=== PATIENT | female | born 1935 | race Caucasian/White ===

== ENCOUNTER 2017-08-23 00:04 | Emergency (ER) | payer MEDICARE ==
[2017-08-23 00:15] VITALS: TEMP 98.2
--- NOTE | 2017-08-23 00:31 | ED ---
Seizure HPI - General Chief Complaint: Seizure Stated Complaint: Seizure Time Seen by Provider: 08/23/17 00:17 Source: patient, family ( ), RN notes reviewed Mode of arrival: EMS Limitations: altered mental status - History of Present Illness Initial Comments: This is an 82-year-old female who presents to the emergency department with chief complaint of seizure. states that he awoke this evening while laying next to his in bed because the bed was shaking. He states that he looked over and noticed that his was having a possible seizure. He states that he got out of bed and called 911. He states that the patient's eyes were open and her pupils appeared dilated. Patient did not fall, she was in the bed the entire episode. states by the time he came back into the room after calling EMS patient had stopped shaking. Currently, patient only complains of nausea. She denies any recent illnesses or infections. She has had a seizure 6 years ago and all tests were negative. There were unable to identify why patient had a seizure. Patient denies any new medications. Denies fevers or chills, chest pain or shortness of breath, abdominal pain, diarrhea or constipation, dysuria or hematuria, headache, dizziness or vision changes. - Related Data Home Medications Medication Instructions Recorded Confirmed Unable To Assess [Unable to Assess] 08/23/17 08/23/17 Allergies Allergy/AdvReac Type Severity Reaction Status Date / Time Sulfa (Sulfonamide Allergy Unknown Verified 08/23/17 00:16 Antibiotics) Review of Systems ROS Statement: Those systems with pertinent positive or pertinent negative responses have been documented in the HPI. ROS Other: All systems not noted in ROS Statement are negative. Past Medical History Past Medical History: Hyperlipidemia History of Any Multi-Drug Resistant Organisms: None Reported Past Surgical History: Tonsillectomy Past Psychological History: No Psychological Hx Reported Smoking Status: Never smoker Past Alcohol Use History: Occasional Past Drug Use History: None Reported General Exam - General Exam Comments Initial Comments: General: Awake and alert, well-developed; in no apparent distress. HEENT: Head atraumatic, normocephalic. Pupils are equal, round and reactive to light. Extraocular movements intact. Oropharynx moist without erythema or exudate. Superficial laceration noted to the left lower lip. Blood is dried. Maceration to bilateral sides of the tongue. Does appear patient bit her tongue during the seizure episode. Neck: Supple. Normal ROM. Cardiovascular: Regular rate and rhythm. No murmurs, rubs or gallops. Chest symmetrical. Respiratory: Lungs clear to auscultation bilaterally. No wheezes, rales or rhonchi. Normal respiratory effort with no use of accessory muscles. Abdomen: Soft, non-tender, non-distended. No rigidity, rebound or guarding. Normal bowel sounds in all 4 quadrants. Musculoskeletal: Normal ROM, no tenderness, strength 5/5 bilateral upper and lower extremities. Ambulating normally. Skin: Shorter, warm and dry without rashes or lesions. Neurological: Alert and oriented x3. CN II-XII grossly intact. Speech is fluent and answers are appropriate. No focal neuro deficits. Psychiatric: Normal mood and affect. No overt signs of depression or anxiety noted. Limitations: altered mental status Course Vital Signs 08/23/17 08/23/17 08/23/17 00:09 01:26 02:11 Temperature 98.2 F Pulse Rate 100 89 86 Respiratory 17 18 18 Rate Blood Pressure 181/89 168/80 172/99 O2 Sat by Pulse 91 L 99 99 Oximetry Medical Decision Making - Medical Decision Making This is an 82-year-old female who presents to the emergency department with chief complaint of seizure. Seizure was witnessed by her . Patient sustained no major injuries as she was seizing while in bed this evening. She did bite her lip and tongue. These are minor wounds. Patient does have a history of a seizure 6 years ago. She takes no antiepileptics. CBC, CMP and coags were unremarkable. Troponin is negative. EKG revealed sinus rhythm with occasional PACs. Chest x-ray revealed no acute abnormalities. 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 This was discussed with patient and her at bedside. Patient's states he does remember being told about this finding 6 years ago. Patient's vital signs at been stable and she is in no acute distress. She has been seizure free while in the emergency department. Recommended admission for observation and neurology follow-up, however patient states she is back to baseline and would like to be discharged home. Patient will be discharged home at this time. She'll be given contact information for follow-up to neurology. All questions were answered. - Lab Data Result diagrams: 08/23/17 00:25 08/23/17 00:25 Lab Results 08/23/17 08/23/17 08/23/17 Range/Units 00:25 00:25 00:25 WBC 5.8 (3.8-10.6) k/uL RBC 3.99 (3.80-5.40) m/uL Hgb 12.9 (11.4-16.0) gm/dL Hct 38.1 (34.0-46.0) % MCV 95.5 (80.0-100.0) fL MCH 32.4 (25.0-35.0) pg MCHC 34.0 (31.0-37.0) g/dL RDW 13.2 (11.5-15.5) % Plt Count 169 (150-450) k/uL Neutrophils % 68 % Lymphocytes % 19 % Monocytes % 9 % Eosinophils % 0 % Basophils % 0 % Neutrophils # 3.9 (1.3-7.7) k/uL Lymphocytes # 1.1 (1.0-4.8) k/uL Monocytes # 0.5 (0-1.0) k/uL Eosinophils # 0.0 (0-0.7) k/uL Basophils # 0.0 (0-0.2) k/uL PT (9.0-12.0) sec INR (<1.2) APTT (22.0-30.0) sec Sodium 134 L (137-145) mmol/L Potassium 3.6 (3.5-5.1) mmol/L Chloride 99 (98-107) mmol/L Carbon Dioxide 20 L (22-30) mmol/L Anion Gap 15 mmol/L BUN 11 (7-17) mg/dL Creatinine 0.70 (0.52-1.04) mg/dL Est GFR (CKD-EPI)AfAm >90 (>60 ml/min/1.73 sqM) Est GFR (CKD-EPI)NonAf 82 (>60 ml/min/1.73 sqM) Glucose 148 H (74-99) mg/dL Calcium 8.7 (8.4-10.2) mg/dL Phosphorus 2.2 L (2.5-4.5) mg/dL Magnesium 1.7 (1.6-2.3) mg/dL Total Bilirubin 0.9 (0.2-1.3) mg/dL AST 43 H (14-36) U/L ALT 28 (9-52) U/L Alkaline Phosphatase 62 (38-126) U/L Troponin I 0.025 (0.000-0.034) ng/mL Total Protein 6.5 (6.3-8.2) g/dL Albumin 4.0 (3.5-5.0) g/dL Urine Color Urine Appearance (Clear) Urine pH (5.0-8.0) Ur Specific Rolla (1.001-1.035) Urine Protein (Negative) Urine Glucose (UA) (Negative) Urine Ketones (Negative) Urine Blood (Negative) Urine Nitrite (Negative) Urine Bilirubin (Negative) Urine Urobilinogen (<2.0) mg/dL Ur Leukocyte Esterase (Negative) Urine RBC (0-5) /hpf Urine WBC (0-5) /hpf Urine WBC Clumps (None) /hpf Ur Squamous Epith Cells (0-4) /hpf Urine Bacteria (None) /hpf Urine Mucus (None) /hpf 08/23/17 08/23/17 Range/Units 00:25 02:10 WBC (3.8-10.6) k/uL RBC (3.80-5.40) m/uL Hgb (11.4-16.0) gm/dL Hct (34.0-46.0) % MCV (80.0-100.0) fL MCH (25.0-35.0) pg MCHC (31.0-37.0) g/dL RDW (11.5-15.5) % Plt Count (150-450) k/uL Neutrophils % % Lymphocytes % % Monocytes % % Eosinophils % % Basophils % % Neutrophils # (1.3-7.7) k/uL Lymphocytes # (1.0-4.8) k/uL Monocytes # (0-1.0) k/uL Eosinophils # (0-0.7) k/uL Basophils # (0-0.2) k/uL PT 11.1 (9.0-12.0) sec INR 1.2 H (<1.2) APTT 21.6 L (22.0-30.0) sec Sodium (137-145) mmol/L Potassium (3.5-5.1) mmol/L Chloride (98-107) mmol/L Carbon Dioxide (22-30) mmol/L Anion Gap mmol/L BUN (7-17) mg/dL Creatinine (0.52-1.04) mg/dL Est GFR (CKD-EPI)AfAm (>60 ml/min/1.73 sqM) Est GFR (CKD-EPI)NonAf (>60 ml/min/1.73 sqM) Glucose (74-99) mg/dL Calcium (8.4-10.2) mg/dL Phosphorus (2.5-4.5) mg/dL Magnesium (1.6-2.3) mg/dL Total Bilirubin (0.2-1.3) mg/dL AST (14-36) U/L ALT (9-52) U/L Alkaline Phosphatase (38-126) U/L Troponin I (0.000-0.034) ng/mL Total Protein (6.3-8.2) g/dL Albumin (3.5-5.0) g/dL Urine Color Light Yellow Urine Appearance Clear (Clear) Urine pH 6.5 (5.0-8.0) Ur Specific Rolla 1.010 (1.001-1.035) Urine Protein 1+ H (Negative) Urine Glucose (UA) Negative (Negative) Urine Ketones Trace H (Negative) Urine Blood Small H (Negative) Urine Nitrite Negative (Negative) Urine Bilirubin Negative (Negative) Urine Urobilinogen <2.0 (<2.0) mg/dL Ur Leukocyte Esterase Trace H (Negative) Urine RBC 10 H (0-5) /hpf Urine WBC 3 (0-5) /hpf Urine WBC Clumps Rare H (None) /hpf Ur Squamous Epith Cells <1 (0-4) /hpf Urine Bacteria Rare H (None) /hpf Urine Mucus Rare H (None) /hpf - EKG Data EKG Comments: 0:37:33. Sinus rhythm with premature atrial complexes. Left axis deviation. Septal infarct, age undetermined. Ventricular rate 100 bpm, VA interval 148, QRS duration 84, QT/QTC 370/477. No evidence of ST segment elevation or depression. - Radiology Data Radiology results: report reviewed CT brain without contrast impression: Cerebral atrophy. Partly calcified extra- axial mass at the left anterior clinoid process consistent with the tuberculum sella meningioma. Chest x-ray impression: No active cardiopulmonary disease. Disposition Clinical Impression: Generalized seizure Disposition: HOME SELF-CARE Condition: Good Instructions: New-Onset Seizure in Adults (ED) Additional Instructions: Please follow up with Dr. Lawrence, neurology within 1-2 days. Please follow up with primary care provider within 1-2 days. Return to emergency department if symptoms should worsen or any concerns arise. Is patient prescribed a controlled substance at d/c from ED?: No Referrals: Sheldon Dailey MD [Primary Care Provider] - 1-2 days Marta Lawrence MD [STAFF PHYSICIAN] - 1-2 days Time of Disposition: 02:48
[2017-08-23 00:38] LABS: Basophils % (A) 0 %; Eosinophils % (A) 0 %; HCT 38.1 % (34.0-46.0); HGB 12.9 gm/dL (11.4-16.0); Lymphocytes # (A) 1.1 k/uL (1.0-4.8); Lymphocytes % (A) 19 %; MCH 32.4 pg (25.0-35.0); MCV 95.5 fL (80.0-100.0); Mean Platelet Volume 6.4; Monocytes # (A) 0.5 k/uL (0-1.0); Monocytes % (A) 9 %; Neutrophils # (A) 3.9 k/uL (1.3-7.7); Neutrophils % (A) 68 %; Platelet Count 169 k/uL (150-450); RBC 3.99 m/uL (3.80-5.40); RDW 13.2 % (11.5-15.5); WBC 5.8 k/uL (3.8-10.6)
[2017-08-23 00:49] LABS: ALT 28 U/L (9-52); AST 43 U/L (14-36); Alkaline Phosphatase 62 U/L (38-126); Anion Gap 15 mmol/L; Blood Urea Nitrogen 11 mg/dL (7-17); Calcium 8.7 mg/dL (8.4-10.2); Carbon Dioxide 20 mmol/L (22-30); Chloride 99 mmol/L (98-107); Glucose 148 mg/dL (74-99); Magnesium 1.7 mg/dL (1.6-2.3); Phosphorus 2.2 mg/dL (2.5-4.5); Potassium 3.6 mmol/L (3.5-5.1); Sodium 134 mmol/L (137-145); Total Bilirubin 0.9 mg/dL (0.2-1.3); Total Protein 6.5 g/dL (6.3-8.2)
--- NOTE | 2017-08-23 00:54 | XR ---
EXAMINATION TYPE: XR chest 2V DATE OF EXAM: 08/23/2017 COMPARISON: NONE HISTORY: Chest pain TECHNIQUE: Frontal and lateral views of the chest are obtained. FINDINGS: There is no heart failure nor confluent pneumonic infiltrate. Costophrenic angles are aj r. Thoracic aorta is atheromatous. Bony thorax is intact. There are chest leads. IMPRESSION: No active cardiopulmonary disease.
[2017-08-23 01:01] LABS: INR 1.2 (<1.2); Prothrombin Time 11.1 sec (9.0-12.0)
[2017-08-23] MEDS ORDERED: ONDANSETRON 4 MG/2 ML VIAL IVP STA (01:04)
--- NOTE | 2017-08-23 01:26 | CT ---
EXAMINATION TYPE: CT brain wo con DATE OF EXAM: 08/23/2017 COMPARISON: NONE HISTORY: seizure activity and left eye twitch CT DLP: 1121.00 mGycm Automated exposure control for dose reduction was used. FINDINGS: There is cerebral cortical atrophy. There is no mass effect nor midline shift. There is no evidence o f intracranial hemorrhage. There is a 2.4 cm rounded calcific density centered at the anterior clinoi d process on the left side the calvarium is intact. IMPRESSION: CEREBRAL ATROPHY. PARTLY CALCIFIED EXTRA-AXIAL MASS AT THE LEFT ANTERIOR CLINOID PROCESS CONSISTENT WITH THE TUBERCULU M SELLA MENINGIOMA.
[2017-08-23 01:28] VITALS: RESP 18
[2017-08-23 01:34] LABS: Partial Thromboplastin Time 21.6 sec (22.0-30.0)
[2017-08-23 02:15] VITALS: BP 172/99; PULSE 86
[2017-08-23 02:36] LABS: Appearance,Urine Clear (Clear); Bacteria,Urine Rare /hpf; Bilirubin,Urine Negative (Negative); Blood,Urine Small (Negative); Color,Urine Light Yellow; Glucose,Urine (UA) Negative (Negative); Ketones,Urine Trace (Negative); Leukocyte Esterase,Urine Trace (Negative); Mucus,Urine Rare /hpf; Nitrite,Urine Negative (Negative); PH, Urine 6.5 (5.0-8.0); Protein,Urine 1+ (Negative); RBC,Urine 10 /hpf (0-5); Squamous Epithelial Cell,Urine <1 /hpf (0-4); Urobilinogen,Urine <2.0 mg/dL (<2.0); WBC,Urine 3 /hpf (0-5)
== END 2017-08-23 03:08 | disposition home or self-care (01) ==
LOC: EC 00:04
DX: R56.9 Unspecified convulsions (principal); S01.511A Laceration without foreign body of lip, initial encounter; S01.552A Open bite of oral cavity, initial encounter; G31.9 Degenerative disease of nervous system, unspecified; I49.1 Atrial premature depolarization; D32.0 Benign neoplasm of cerebral meninges; R41.82 Altered mental status, unspecified; R11.0 Nausea; Z88.2 Allergy status to sulfonamides; X58.XXXA Exposure to other specified factors, initial encounter
CPT/HCPCS: 99285 ×2; 96374 ×2; 36415; 93005; 80053; 83735; 84100; 84484; 85025; 85610; 85730; 81001; 71046; 70450; 70553; J2405; A9581

== ENCOUNTER → 2017-08-23 | Outpatient (CLI) | payer MEDICARE ==
--- NOTE | 2017-08-23 18:45 | MR ---
EXAMINATION TYPE: MR brain wo/w con DATE OF EXAM: 08/23/2017 COMPARISON: NONE HISTORY: Seizure 7-2-18, abn CT, R/O meningioma TECHNIQUE: Multiplanar, multisequence images of the brain and brainstem is performed without and with IV contras t, utilizing 5.5 mL intravenous Gadavist . FINDINGS: There is cerebral cortical atrophy. There is patchy increased signal in the periventricular white mat ter on the T2 and FLAIR images. There is no midline shift. There is no sign of intracranial hemorrhag e. There is thinning of the corpus callosum. There is some patchy increased signal within the central amrita. There is a rounded 2 x 2.2 x 1.8 cm sharply marginated mass anterior to the left internal carotid art celina and left middle cerebral artery in the supraclinoid region on the left side. This has some mild i nternal enhancement. There is no surrounding mass effect or edema. This is an extra-axial mass and pr obably meningioma. The supraclinoid left internal carotid artery is partly encased by the mass. No ot her areas of pathologic enhancement are seen. IMPRESSION: Cerebral atrophy and chronic small vessel ischemia. Extra-axial enhancing left side well-defined mass without adjacent mass effect or edema is consistent with a tuberculum sella meningioma. A giant aneurysm is in the differential diagnosis but I think mu ch less likely.
== END | disposition home or self-care (01) ==
LOC: RADMRIMAIN 15:02
PROVIDERS: ATTEND Internal Medicine
DX: G31.9 Degenerative disease of nervous system, unspecified (principal); I67.82 Cerebral ischemia; G93.89 Other specified disorders of brain
CPT/HCPCS: 70553; A9581

== ENCOUNTER → 2017-10-07 | Outpatient (CLI) | payer MEDICARE ==
--- NOTE | 2017-10-07 11:16 | US ---
EXAMINATION TYPE: US venous doppler duplex LE RT DATE OF EXAM: 10/07/2017 10:54 AM COMPARISON: NONE CLINICAL HISTORY: I87.2 Venous insufficiency (chronic) (peripheral). Right ankle swelling. R/O DVT. No blood thinners. No hx of blood clots. SIDE PERFORMED: Right TECHNIQUE: The lower extremity deep venous system is examined utilizing real time linear array sonog misti with graded compression, doppler sonography and color-flow sonography. VESSELS IMAGED: External Iliac Vein (EIV) Common Femoral Vein Deep Femoral Vein Greater Saphenous Vein * Femoral Vein Popliteal Vein Small Saphenous Vein * Proximal Calf Veins (* superficial vessels) Grayscale, color doppler, spectral doppler imaging performed of the deep veins of the right lower ext remity. There is normal flow, compressibility, vascular waveforms. Right Leg: Negative for DVT. Prominent valve incidentally seen in mid popliteal vein. IMPRESSION: No sonographic evidence of deep venous thrombosis within the right lower extremity. Nicole tary thickened mid popliteal valve with associated turbulent flow without current valvular insufficie ncy.
== END | disposition home or self-care (01) ==
LOC: RADUSWWP 10:19
PROVIDERS: ATTEND Internal Medicine
DX: I87.2 Venous insufficiency (chronic) (peripheral) (principal)

== ENCOUNTER 2018-09-05 00:36 | Inpatient (IN) | payer MEDICARE ==
[2018-09-05] MEDS ORDERED: SODIUM CHLORIDE 0.9% 1,000 ML IV STA (00:37)
[2018-09-05] MEDS ORDERED: levETIRAcetam IV 500 MG in SODIUM CHLORIDE 0.9% 100 ML IVPB STA (00:44)
[2018-09-05 00:52] LABS: Glucose,Whole Blood 161 mg/dL (75-99)
[2018-09-05 01:05] LABS: Basophils % (A) 0 %; Eosinophils # (A) 0.1 k/uL (0-0.7); Eosinophils % (A) 1 %; HCT 42.1 % (34.0-46.0); HGB 13.9 gm/dL (11.4-16.0); Lymphocytes % (A) 12 %; MCH 32.2 pg (25.0-35.0); MCHC 32.9 g/dL (31.0-37.0); Mean Platelet Volume 6.5; Monocytes # (A) 0.4 k/uL (0-1.0); Monocytes % (A) 5 %; Neutrophils # (A) 6.3 k/uL (1.3-7.7); Neutrophils % (A) 80 %; Platelet Count 178 k/uL (150-450); RDW 12.8 % (11.5-15.5); WBC 7.9 k/uL (3.8-10.6)
[2018-09-05 01:14] LABS: ALT 29 U/L (9-52); AST 56 U/L (14-36); African American GFR (CKD) >90 (>60 ml/min/1.73 sqM); Albumin 4.1 g/dL (3.5-5.0); Alkaline Phosphatase 64 U/L (38-126); Anion Gap 15 mmol/L; Blood Urea Nitrogen 16 mg/dL (7-17); Calcium 8.9 mg/dL (8.4-10.2); Carbon Dioxide 17 mmol/L (22-30); Chloride 100 mmol/L (98-107); Glucose 162 mg/dL (74-99); Potassium 3.8 mmol/L (3.5-5.1); Sodium 132 mmol/L (137-145); Total Bilirubin 1.5 mg/dL (0.2-1.3); Total Protein 7.1 g/dL (6.3-8.2)
[2018-09-05] MEDS ORDERED: ONDANSETRON 4 MG/2 ML VIAL IVP STA (01:26)
--- NOTE | 2018-09-05 01:35 | XR ---
INDICATION: Pain COMPARISON: CXR 08/23/17 FINDINGS: Frontal and lateral views of the chest are provided. The heart is normal in size. Pulmonary vascularity is normal. There is no airspace consolidation, pleural effusion, or pneumothorax. Regional skeleton appears intact. IMPRESSION: No acute cardiopulmonary disease.
--- NOTE | 2018-09-05 01:35 | CT ---
INDICATION: Seizure activity TECHNIQUE: CT acquisition is performed through the brain. Sagittal and coronal reformatted images are provided. No IV contrast is administered. DOSE INFORMATION: DLP 1068.4 mGy-cm. This CT exam was performed using one or more of the following dose reduction techniques: automated exposure control, adjustment of the mA and/or kV according to patient size, and/or use of iterative reconstruction technique. COMPARISON: CT head 08/23/17. FINDINGS: The calvarium is intact. The visualized paranasal sinuses and mastoid air cells are clear. There is a stable calcified extra-axial mass in the left paraclinoid region measuring 2.3 x 2.5 x 2.2 cm, most likely a meningioma. There is no adjacent parenchymal edema. There is no evidence of acute intracranial hemorrhage or abnormal extra- axial fluid collection. There is no midline shift. Patchy hypoattenuation in the cerebral white matter is compatible with chronic small vessel ischemic disease. The lockhart-white matter differentiation is preserved. There is mild age-related parenchymal volume loss with symmetric prominence of the sulci, ventricles, and basal cisterns. IMPRESSION: 1. Stable presumed meningioma in the left paraclinoid region measuring 2. 5 cm in maximum diameter. 2. Involutional and chronic small vessel ischemic changes. 3. No CT evidence of acute intracranial process.
--- NOTE | 2018-09-05 01:56 | ED ---
Seizure HPI - General Chief Complaint: Seizure Stated Complaint: seizure Time Seen by Provider: 09/05/18 00:37 Source: family, EMS Mode of arrival: EMS - History of Present Illness Initial Comments: Lynne is a pleasant 83-year-old female with history of seizure disorder for which she is on Keppra twice daily. Patient presents to the emergency department today via EMS after an apparent seizure at home. History is provided primarily by the who reports that they've gone to bed at the usual time, he woke hearing her abnormal breathing and realized that she was having a seizure. At which time he called 911. EMS reports that they arrived on scene the patient was postictal, confused but in no acute distress. Her mental status has improved during transport. Upon arrival to the emergency department the patient expresses frustration that she has had a seizure but denies any acute complaints. Patient and report her last seizure was approximately one year ago. - Related Data Home Medications Medication Instructions Recorded Confirmed Unable To Assess [Unable to Assess] 08/23/17 08/23/17 Allergies Allergy/AdvReac Type Severity Reaction Status Date / Time Sulfa (Sulfonamide Allergy Unknown Verified 08/23/17 00:16 Antibiotics) Review of Systems ROS Statement: Those systems with pertinent positive or pertinent negative responses have been documented in the HPI. ROS Other: All systems not noted in ROS Statement are negative. Past Medical History Past Medical History: Hyperlipidemia History of Any Multi-Drug Resistant Organisms: None Reported Past Surgical History: Tonsillectomy Past Psychological History: No Psychological Hx Reported Smoking Status: Never smoker Past Alcohol Use History: Occasional Past Drug Use History: None Reported General Exam - General Exam Comments Initial Comments: Physical Exam GENERAL: Patient is well-developed and well-nourished. Patient is nontoxic and well- hydrated and is in no distress. HENT: Normocephalic, Atraumatic. EYES: PERRL, EOMI PULMONARY: Unlabored respirations. No audible rales rhonchi or wheezing was noted. CARDIOVASCULAR: There is a regular rate and rhythm without any murmurs gallops or rubs. ABDOMEN: Soft and nontender with normal bowel sounds. SKIN: Skin is clear with no lesions or rashes and otherwise unremarkable. : Deferred NEUROLOGIC: Patient is alert and oriented x3. Moving all extremities spontaneously MUSCULOSKELETAL: Normal extremities with adequate strength and full range of motion. No lower extremity swelling or edema. No calf tenderness. PSYCHIATRIC: Normal psychiatric evaluation Course Vital Signs 09/05/18 09/05/18 00:37 01:22 Temperature 99.1 F 98.7 F Pulse Rate 93 Respiratory 18 Rate Blood Pressure 172/108 160/97 O2 Sat by Pulse 96 92 L Oximetry Medical Decision Making - Medical Decision Making Patient was seen and evaluated, history is obtained from the patient, and EMS This is a patient with known seizure disorder with recurrent seizures despite medication compliance, given her advanced age and history of known meningioma computed tomography scan was ordered Labs resulted with some abnormalities including lactic acidosis with a lactic acid measuring 6.8 Dose of Keppra was given for the patient find Computed tomography scan revealed no acute intracranial findings Patient care was discussed with Dr. Vitaliy [facility] who accepts the admission for recurrent seizures. Request a consult to neurology Dr. Owen. Admission orders were placed. She was noted to have some irregular heartbeat on urban planner and a repeat EKG was obtained. Again the EKG is nonischemic and reveals sinus rhythm with frequent PACs. I suspect that the patient acidosis is leading to cardiac membrane irritability what causing the PACs. - Lab Data Result diagrams: 09/05/18 00:46 09/05/18 00:46 Lab Results 09/05/18 09/05/18 09/05/18 Range/Units 00:46 00:46 00:46 WBC 7.9 (3.8-10.6) k/uL RBC 4.30 (3.80-5.40) m/uL Hgb 13.9 (11.4-16.0) gm/dL Hct 42.1 (34.0-46.0) % MCV 98.0 (80.0-100.0) fL MCH 32.2 (25.0-35.0) pg MCHC 32.9 (31.0-37.0) g/dL RDW 12.8 (11.5-15.5) % Plt Count 178 (150-450) k/uL Neutrophils % 80 % Lymphocytes % 12 % Monocytes % 5 % Eosinophils % 1 % Basophils % 0 % Neutrophils # 6.3 (1.3-7.7) k/uL Lymphocytes # 1.0 (1.0-4.8) k/uL Monocytes # 0.4 (0-1.0) k/uL Eosinophils # 0.1 (0-0.7) k/uL Basophils # 0.0 (0-0.2) k/uL Sodium 132 L (137-145) mmol/L Potassium 3.8 (3.5-5.1) mmol/L Chloride 100 (98-107) mmol/L Carbon Dioxide 17 L (22-30) mmol/L Anion Gap 15 mmol/L BUN 16 (7-17) mg/dL Creatinine 0.72 (0.52-1.04) mg/dL Est GFR (CKD-EPI)AfAm >90 (>60 ml/min/1.73 sqM) Est GFR (CKD-EPI)NonAf 79 (>60 ml/min/1.73 sqM) Glucose 162 H (74-99) mg/dL POC Glucose (mg/dL) (75-99) mg/dL POC Glu Machine Tool Electrician ID Plasma Lactic Acid Norbert 6.9 H* (0.7-2.0) mmol/L Calcium 8.9 (8.4-10.2) mg/dL Total Bilirubin 1.5 H (0.2-1.3) mg/dL AST 56 H (14-36) U/L ALT 29 (9-52) U/L Alkaline Phosphatase 64 (38-126) U/L Total Protein 7.1 (6.3-8.2) g/dL Albumin 4.1 (3.5-5.0) g/dL 09/05/18 Range/Units 00:51 WBC (3.8-10.6) k/uL RBC (3.80-5.40) m/uL Hgb (11.4-16.0) gm/dL Hct (34.0-46.0) % MCV (80.0-100.0) fL MCH (25.0-35.0) pg MCHC (31.0-37.0) g/dL RDW (11.5-15.5) % Plt Count (150-450) k/uL Neutrophils % % Lymphocytes % % Monocytes % % Eosinophils % % Basophils % % Neutrophils # (1.3-7.7) k/uL Lymphocytes # (1.0-4.8) k/uL Monocytes # (0-1.0) k/uL Eosinophils # (0-0.7) k/uL Basophils # (0-0.2) k/uL Sodium (137-145) mmol/L Potassium (3.5-5.1) mmol/L Chloride (98-107) mmol/L Carbon Dioxide (22-30) mmol/L Anion Gap mmol/L BUN (7-17) mg/dL Creatinine (0.52-1.04) mg/dL Est GFR (CKD-EPI)AfAm (>60 ml/min/1.73 sqM) Est GFR (CKD-EPI)NonAf (>60 ml/min/1.73 sqM) Glucose (74-99) mg/dL POC Glucose (mg/dL) 161 H (75-99) mg/dL POC Glu Machine Tool Electrician ID Chelo Schreiber Plasma Lactic Acid Norbert (0.7-2.0) mmol/L Calcium (8.4-10.2) mg/dL Total Bilirubin (0.2-1.3) mg/dL AST (14-36) U/L ALT (9-52) U/L Alkaline Phosphatase (38-126) U/L Total Protein (6.3-8.2) g/dL Albumin (3.5-5.0) g/dL - EKG Data -: EKG Interpreted by Al EKG Comments: EKG was ordered due to complaint of seizure, initial EKG was obtained at 12:47 AM, repeat is 105, rhythm is sinus with very frequent PACs, there is a leftward deviation, GA is 146, QRS is 84, QTC is 478. There are no acute ST elevations or depressions is no evidence of acute ischemia or infarction. Repeat EKG was obtained due to some irregularity of the rhythm noted on the patient's urban planner, repeat EKG obtained at 3:13 AM, he is 100 rhythm is again sinus with frequent PACs. The leftward deviation persists. GA 140, QRS 84, QTC [address] elevations or depressions no evidence of acute ischemia or infarction. Disposition Clinical Impression: Generalized seizure Disposition: ADMITTED IP TO THIS HOSP Condition: Stable Referrals: Sheldon Dailey MD [Primary Care Provider] - 1-2 days
[2018-09-05] MEDS ORDERED: NALOXONE 0.4 MG/ML 1 ML VIAL IV PRN (02:31)
--- NOTE | 2018-09-05 03:08 | P.HPIM ---
History of Present Illness H&P Date: 09/05/18 The patient is an 83 yo F with a PMH of seizure disorder who presented to the ED for a breakthrough seizure. The history is supplemented by her at the bedside. He notes that him and the patient were sleeping comfortably in bed hussain he woke up to her heaving a grand-mal seizure. The seizure lasted upwards of 4-6 minutes with post-ictal confusion which improved gradually. The patient notes co mpliance to her prescribed Keppra. She otherwise denied any new stressors, fever, chills, nausea or vomiting. Denied chest pain, SOB, abdominal pain, or diarrhea. She reports feeling tired and confused after the seizure episode of which she has no recollection The patient underwent an extensive evaluation in the ED w/ lactic acid 6.9, Na 132, WBC 7.9, and Hgb 13.9. A brain CT revealed stable meningioma with chronic ischemic changes. CXR was unremarkable. The patient was admitted to the medicine service for breakthrough seizure. Review of Systems Pertinent positives and negatives as discussed in HPI, a complete review of systems was performed and all other systems are negative. Past Medical History Past Medical History: Hyperlipidemia History of Any Multi-Drug Resistant Organisms: None Reported Past Surgical History: Tonsillectomy Past Psychological History: No Psychological Hx Reported Smoking Status: Never smoker Past Alcohol Use History: Occasional Past Drug Use History: None Reported Medications and Allergies Home Medications Medication Instructions Recorded Confirmed Type Unable To Assess [Unable to Assess] 08/23/17 08/23/17 History Allergies Allergy/AdvReac Type Severity Reaction Status Date / Time Sulfa (Sulfonamide Allergy Unknown Verified 08/23/17 00:16 Antibiotics) Physical Exam Vitals: Vital Signs Temp Pulse Resp BP Pulse Ox 09/05/18 01:22 98.7 F 93 18 160/97 92 L 09/05/18 00:37 99.1 F 172/108 96 Intake and Output 09/04/18 09/04/18 09/05/18 14:59 22:59 06:59 Other: Weight 58.967 kg General: non toxic, no distress, appears at stated age, normal weight Derm: no unusual rashes/lesions no unusual ecchymoses, warm, dry Head: atraumatic, normocephalic, symmetric Eyes: EOMI, no lid lag, anicteric sclera, pupils equal round reactive to light ENT: Nose and ears atraumatic, no thrush, no pharyngeal erythema Neck: No thyromegaly, no cervical lymphadenopathy, trachea midline, supple Mouth: no lip lesion, mucus membranes moist Cardiovascular: S1S2 reg, no murmur, positive posterior tibial pulse bilateral, no edema, capillary refill less than 2 seconds Lungs: CTA bilateral, no rhonchi, no rales , no accessory muscle use Abdominal: soft, nontender to palpation, no guarding, no appreciable organomegaly, normal bowel sounds Ext: no gross muscle atrophy, muscle strength 4 out of 5 in all 4 extremities grossly, no contractures, Neuro: CN II-XI grossly intact, light touch intact all 4 extremities, finger to nose within normal limits, Psych: Alert, oriented, mildly lethargic Results CBC & Chem 7: 09/05/18 00:46 09/05/18 00:46 Labs: Abnormal Lab Results - Last 24 Hours (Table) 09/05/18 09/05/18 09/05/18 Range/Units 00:46 00:46 00:51 Sodium 132 L (137-145) mmol/L Carbon Dioxide 17 L (22-30) mmol/L Glucose 162 H (74-99) mg/dL POC Glucose (mg/dL) 161 H (75-99) mg/dL Plasma Lactic Acid Norbert 6.9 H* (0.7-2.0) mmol/L Total Bilirubin 1.5 H (0.2-1.3) mg/dL AST 56 H (14-36) U/L Assessment and Plan Plan: Breakthrough seizure -Patient given 500 mg IV Keppra in the ED -Aspiration, seizure, fall precautions -Resume home dose of Keppra -Neurology evaluation Lactic acidosis, secondary to seizure -C/w IVFs Hyperglycemia -Check A1C DVT prophylaxis -Heparin The patient is admitted with an anticipated greater than 2 midnight stay for evaluation of breakthrough seizure. CODE STATUS:Full Code Discussed with: Patient, Anticipated discharge date: 09/07/[address]: Home A total of 45 minutes was spent on the care of this complex patient more than 50% of the time was spent in counseling and care coordination.
[2018-09-05 04:46] VITALS: RESP 16
[2018-09-05 08:33] VITALS: TEMP 98.4
[2018-09-05] MEDS ORDERED: PRAVASTATIN SODIUM 20 MG TAB PO SCH (09:00)
[2018-09-05] MEDS ORDERED: MULTIVITAMINS, THERA 1 EACH TAB PO SCH (09:00)
[2018-09-05] MEDS ORDERED: levETIRAcetam 250 MG TAB PO SCH (09:00)
--- NOTE | 2018-09-05 13:37 | P.PN ---
Progress Note - Text Progress Note Date: 09/05/18 (Delayed charting seen at 11 am) Hospitalist Interval Note Patient seen and examined at bedside. Patient denies any chest pain, shortness of breath, nausea, or vomiting. No additional seizure-like activity after admission. Patient present at bedside and all questions answered- he would likel to speak with the neurologist. Vital signs reviewed General: non toxic, no distress, appears at stated age Derm: warm, dry Head: atraumatic, normocephalic, symmetric Eyes: EOMI, no lid lag, anicteric sclera Mouth: no lip lesion, mucus membranes moist Cardiovascular: S1S2 reg, no murmur, positive posterior tibial pulse bilateral, Lungs: CTA bilateral, no rhonchi, no rales , no accessory muscle use Abdominal: soft, nontender to palpation, no guarding, no appreciable organomegaly Ext: no gross muscle atrophy, no edema, no contractures Neuro: CN II-XI grossly intact, no focal neuro deficits Psych: Alert, oriented to self and year but believe she is at home on the [place], appropriate affect Assessment/Plan: 1. break through seizure- keppra reordered until seen by neurology, head CT redemonstrates meninginoma. - CXR negative - check UA 2. Lactic acidosis due to seizure resolved. 3. Hyponatremia- Continue IVF recheck in AM This is an update note for patient , for full note on 09/05 see H and P. There is no charge associated with this note.
[2018-09-05] MEDS ORDERED: SODIUM CHLORIDE 0.9% 1,000 ML IV SCH (13:45)
--- NOTE | 2018-09-05 13:53 | P.CNNES ---
History of Present Illness Consult date: 09/05/18 Reason for Consult: Breakthrough seizure Chief complaint: Breakthrough seizure History of Present Illness: REFERRING PHYSICIAN: [ Dr. Reid Burks] HISTORY OF PRESENT ILLNESS: Thank you for allowing me to evaluate Mrs. Lynne Estrada is a 83-year-old woman with past medical history of seizure disorder most likely from a brain lesion who presented to [facility] for a breakthrough seizure, consulting neurology for seizure evaluation. Patient is at bedside for corroboration. Patient does not remember the event. states that the patient was sleeping in bed when he woke up to patient having a seizure episode. He states that patient becomes stiff with her right arm extended and her left arm flexed towards her body. This event lasted for a couple of minutes. Patient is confused afterwards and tired. Patient slept overnight. One has been came this morning patient was back to baseline. Patient denies any recent headache, nausea, vomiting, dizziness, weakness, numbness or tingling, chest pain, tightness of breath, abdominal pain, constipation, diarrhea. Denies any recent stressors, decreased sleep, recent travel, recent sickness. reports that patient first have her seizure-like event 3 years ago where patient was incoherent, had tongue biting. This occurred in [place]. At that time had imaging showed "calcification." Patient was seen by a neurologist, in no seizure medication was started at the time. On 08/26/2017, patient had her second episode where she was not coherent again, had foaming in her mouth, did not have stiffness. At that time patient was started on a Keppra derivative at 250 mg by mouth twice a day. It is unclear whether patient was taking Keppra or a different formulation of a similar medication. Reports [facility] c ompliance. All the events occurred at nighttime. Patient never had any urinary or bowel incontinence. PAST MEDICAL HISTORY: Seizure, possible meningioma PAST SURGICAL HISTORY: [ Tonsillectomy] HOME MEDICATIONS: Keppra "derivative" 250 mg by mouth twice a day FAMILY HISTORY: [Denies any history of seizures, neurological disorders, stroke, cancer, heart attack and family. ] HISTORY: Patient was a full-term baby, no complications. No meningitis, febrile seizures, hospitalizations as a baby. Denies any trauma or car accidents. REVIEW OF SYSTEMS: The 14 systems are reviewed and no additional points are identified compared to the review of systems documented history and physical PHYSICAL EXAMINATION: VITAL SIGNS: [Temperature 98.6. Blood pressure 156/91. Pulse 86. Respiratory rate 16. O2 sat 96% room air. ] GEN.: [NAD, pleasant and cooperative] HEENT: [NCAT, sclera without icterus] NECK: [Supple] SKIN AND EXTREMITIES: [Warm to touch, no edema] Neuro: MENTAL STATUS: [Patient alert and oriented to self, place, time. Able to name the current president. Speech fluent, able to name and repeat, following all commands readily. No right and left disorientation, extinction to double simultaneous stimulation, finger agnosia, neglect.] CRANIAL NERVES II THROUGH XII: II: [Pupils are equal and reactive to light symmetrically. No afferent pupillary defect. Visual bashir are intact. III, IV, : No ptosis. Extraocular movements full. No nystagmus. V: Facial sensation intact from V1-3. VII. left facial droop, along with synkinesis when patient either closes her left eye or smiles. VIII: Hearing intact to finger rub bilaterally. IX, X: Symmetric palate elevation. XII: Shoulder shrug intact. XII: Tongue midline without fasciculation or atrophy.] MOTOR: [Normal bulk/tone. No pronator drift or tremor. Strength is 5/5 throughout all 4 extremities.] SENSORY: [Intact to light touch all 4 extremities. REFLEXES: [2+ throughout. Toes are downgoing.] COORDINATION: Finger to nose and heel to jaramillo intact. No dysmetria. DIAGNOSTIC TESTING: Laboratory: [WBC 7.9 hemoglobin 13.9 platelets 178 sodium 132 carbon dioxide 17 creatinine bun 16 AST 56 ALP 29] Imaging: [ CT head 09/05/2018: Stable presumed meningioma in the left paraclinoid region measuring 2.5 cm in maximum diameter. Chronic small vessel ischemic changes.] ASSESSMENT and PLAN: [Mrs. Estrada is a 83-year-old woman with past medical history of seizure disorder most likely from a brain lesion who presented to [facility] for a breakthrough seizure, consulting neurology for seizure evaluation. Patient has a known calcified mass in the left paraspinal region, most likely a meningioma, that has been stable in size. Patient with a fencer posturing seizure, with right arm being abducted, which is consistent with the presence of the meningioma close to the left frontal lobe. Recommend increasing dose of Keppra to 750 mg by mouth twice a day. Also recommend patient to follow up with outpatient neurologist after discharge. Patient noted to have left facial asym metry along with synkinesis when patient closes her left eye or smiles. 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 Discussed with patient and about this diagnosis, and also discussed other stroke like symptoms for which patient should be brought to the emergency room in the future. Patient and endorsed understanding.] Past Medical History Past Medical History: Hyperlipidemia History of Any Multi-Drug Resistant Organisms: None Reported Past Surgical History: Tonsillectomy Past Psychological History: No Psychological Hx Reported Smoking Status: Never smoker Past Alcohol Use History: Occasional Past Drug Use History: None Reported - Past Family History Father Family Medical History: No Reported History Medications and Allergies Home Medications Medication Instructions Recorded Confirmed Type Multivit-Min/FA/Lycopen/Lutein 1 tab PO DAILY 09/05/18 09/05/18 History [Centrum Silver Tablet] Pravastatin Sodium [Pravachol] 20 mg PO DAILY 09/05/18 09/05/18 History levETIRAcetam [Keppra] 250 mg PO BID 09/05/18 09/05/18 History Allergies Allergy/AdvReac Type Severity Reaction Status Date / Time Sulfa (Sulfonamide Allergy Unknown Verified 09/05/18 07:29 Antibiotics) Physical Examination - Vital Signs Vital Signs: Vital Signs Temp Pulse Pulse Resp BP BP Pulse Ox 09/05/18 08:10 70 16 09/05/18 07:00 98.4 F 70 16 160/72 94 L 09/05/18 04:45 98.6 F 86 16 156/91 96 09/05/18 01:22 98.7 F 93 18 160/97 92 L 09/05/18 00:37 99.1 F 172/108 96 Intake and Output 09/04/18 09/05/18 09/05/18 22:59 06:59 14:59 Other: Voiding Method Bedside Commode Bedside Commode Diaper Diaper # Voids 1 Weight 58.967 kg Results - Laboratory Findings CBC and BMP: 09/05/18 00:46 09/05/18 00:46 Abnormal Lab Findings: Abnormal Labs 0709/05/18 09/05/18 00:46 00:46 00:51 Sodium 132 L Carbon Dioxide 17 L Glucose 162 H POC Glucose (mg/dL) 161 H Plasma Lactic Acid Norbert 6.9 H* Total Bilirubin 1.5 H AST 56 H
[2018-09-05 14:44] VITALS: BP 155/103; PULSE 95
--- NOTE | 2018-09-05 15:18 | P.DS ---
Providers Date of admission: 09/05/18 02:31 Expected date of discharge: 09/05/18 Attending physician: Reid Burks MD Consults: 09/05/18 02:32 Consult Physician Urgent Consulting Provider: Julia Owen Consult Reason/Comments: recurrent seizure Do you want consulting provider notified?: Yes, Notify in am Primary care physician: Sheldon Dailey Hospital Course: Discharge Diagnosis: Breakthrough seizure with known history of seizure disorder Probable meningioma Lactic acidosis secondary to seizure Hyponatremia, chronic in nature and near baseline Hospital Course: Patient is a 83-year-old female past medical history of dyslipidemia, seizure disorder, and known meningioma who presented to the emergency department with breakthrough seizure. Apparently she started having seizure-like activity lasting 4-6 minutes with post ictal confusion. In the emergency department she underwent an extensive evaluation. On arrival her blood pressure is 172/108. Initial laboratory analysis showed lactic acid level of 6.9 which improved to 1.9 with IV fluids. She was also found to be slightly hyperglycemic with g lucoses 162. Her sodium was 132 which is near her baseline of 134. Head CT demonstrated meningioma in the left paraclinoid region 5 cm in maximal diameter. This appeared stable from prior MRI in 2018. She is giving a loading dose of IV Keppra and admitted for further management. She remained seizure-free during her hospital stay. She was seen by neurology who recommended increasing her Keppra to 750 mg twice daily. She was determined stable for discharge. She will need to follow-up with neurology as an outpatient setting and she sees Dr. Chin. She will also need to follow-up with Dr. Dailey for further following of her blood pressures as they remained with a systolic greater than 150, though this was felt likely due to white coat hypertension. She also was noted to have slightly elevated blood sugar on arrival 160. Hemoglobin A1c was pending at time of discharge. Positive was instructed to return to the hospital if any strokelike symptoms or repeat seizure activity. Patient's condition improved faster than anticipated and she was therefore discharged in less than 2 midnight stay. For physical exam see progress note same date. A total of 25 minutes of time were spent preparing this complex discharge summary . Pertinent Studies: Chest x-ray-no acute process CT head-probable meningioma stable, 5 cm Patient Condition at Discharge: Stable Plan - Discharge Summary Discharge Rx Participant: Yes New Discharge Prescriptions: New levETIRAcetam [Keppra] 750 mg PO BID #60 tab Continue Pravastatin Sodium [Pravachol] 20 mg PO DAILY Multivit-Min/FA/Lycopen/Lutein [Centrum Silver Tablet] 1 tab PO DAILY Discontinued levETIRAcetam [Keppra] 250 mg PO BID Discharge Medication List Multivit-Min/FA/Lycopen/Lutein [Centrum Silver Tablet] 1 tab PO DAILY 09/05/18 [History] Pravastatin Sodium [Pravachol] 20 mg PO DAILY 09/05/18 [History] levETIRAcetam [Keppra] 750 mg PO BID #60 tab 09/05/18 [Rx] Follow up Appointment(s)/Referral(s): Sheldon Dailey MD [Primary Care Provider] - 1-2 days Kahlil Escobar DO [REFERRING] - 1 Week Activity/Diet/Wound Care/Special Instructions: regular diet activity as tolerated Return to the emergency department if repeat seizure activity or stroke-like symptoms. No driving or swimming for 6 months.
== END 2018-09-05 16:43 | disposition home or self-care (01) | DRG 101 ==
LOC: EC 00:36 → 4SSUR 02:31
PROVIDERS: ADMIT Internal Medicine; ATTEND Internal Medicine
DX: G40.909 Epilepsy, unspecified, not intractable, without status epilepticus (principal); E87.1 Hypo-osmolality and hyponatremia; E87.2 Acidosis; D32.9 Benign neoplasm of meninges, unspecified; E78.5 Hyperlipidemia, unspecified; I10 Essential (primary) hypertension; Z79.899 Other long term (current) drug therapy; R73.9 Hyperglycemia, unspecified; Z88.2 Allergy status to sulfonamides
CPT/HCPCS: 36415; 70450; 71046; 80053; 83605; 85025; 93005; 96361; 96374; 99285